=== PATIENT | female | born 1960 | race Caucasian/White ===

== ENCOUNTER 2021-07-22 14:50 | Emergency (ER) | payer OTHER, MEDICAID ==
[~2021-07-22] VITALS: Ht 147.3 cm; Wt 72.6 kg
[2021-07-22] MEDS ORDERED: ZETIA10 MG PO (15:16)
[2021-07-22] MEDS ORDERED: BUPROPION XL300 MG PO (15:17)
[2021-07-22] MEDS ORDERED: CELEXA 20 MG TA20 MG PO (15:17)
[2021-07-22] MEDS ORDERED: HYDROCHLOROTH12.5 M2 PO (15:17)
[2021-07-22] MEDS ORDERED: CRESTOR40 MG PO (15:18)
[2021-07-22] MEDS ORDERED: PREDNISONE 10 M10 MG PO (15:19)
[2021-07-22] MEDS ORDERED: SYNTHROID25 MC1 PO (15:19)
[2021-07-22] MEDS ORDERED: PROAIR HFA8.5 GM INH (15:19)
[2021-07-22] MEDS ORDERED: SYMBICORT160 MCG/4. INH (15:19)
[2021-07-22 16:12] LABS: URINE BILIRUBIN NEGATIVE (Negative); URINE BLOOD 3+ (Negative); URINE COLOR YELLOW; URINE GLUCOSE-RANDOM NEGATIVE (Negative); URINE KETONES NEGATIVE (Negative); URINE LEUKOCYTES-REFLEX TRACE (Negative); URINE NITRITE-REFLEX NEGATIVE (Negative); URINE PROTEIN NEGATIVE (Negative); URINE SPECIFIC GRAVITY >= 1.030 (1.005-1.030); URINE UROBILINOGEN 0.2 E.U./dl (0.2-1.0)
[2021-07-22 16:14] LABS: URINE CLARITY CLOUDY
[2021-07-22 16:20] LABS: BACTERIA-REFLEX 1-9 Few /HPF (None Seen); MUCUS None Seen strn/LPF (None Seen); SQUAMOUS >10 Many /LPF (0-3); URINE RBC >20 Many /HPF (0-2)
[2021-07-22 16:21] LABS: CASTS None Seen /LPF (None Seen); CRYSTALS None Seen /LPF (None Seen); URINE WBC-REFLEX 6-15 Few /HPF (0-5)
[2021-07-22 16:57] LABS: ABSOLUTE EOSINOPHILS 0.2 thou/uL (0.0-0.7); ABSOLUTE LYMPHOCYTES 1.2 thou/uL (0.8-5.3); ABSOLUTE MONOCYTES 0.7 thou/uL (0.0-1.2); ABSOLUTE NEUTROPHILS 7.9 thou/uL (1.6-8.1); BASOPHILS 0.1 %; EOSINOPHILS 1.6 %; HEMATOCRIT 44.3 % (37.0-47.0); HEMOGLOBIN 14.9 gm/dL (12.0-15.0); LYMPHOCYTES 12.4 %; MCH 30.4 pg (26.0-34.0); MCHC 33.6 g/dL (28.0-37.0); MCV 90.7 fL (80.0-100.0); MONOCYTES 7.4 %; MPV 9.4 fl. (7.2-11.1); NUCLEATED RBCS 0 /100WBC; PLATELET COUNT* 162 thou/uL (150-400); POLYS 78.5 %; RBC 4.89 mil/uL (4.20-5.00); RDW-CV 14.4 % (10.5-14.5)
[2021-07-22 16:59] LABS: CALCIUM 9.5 mg/dL (8.5-10.1); CREATININE 1.2 mg/dL (0.6-1.3); POTASSIUM 4.2 mmol/L (3.5-5.1)
[2021-07-22] MEDS ORDERED: ZOFRAN ODT4 MG PO (17:41)
[2021-07-22] MEDS ORDERED: NORCO5 PO (17:47)
[2021-07-22 18:11] VITALS: BP 165/88
--- NOTE | 2021-07-23 09:23 | EKG ---
[place] [address] ELECTROCARDIOGRAM REPORT Name: PATRICIAELODIA Nelson Room: [facility]#: [id number] Admission: 07/22/21 Attend Phys: Discharge: 07/22/21 Date of : 56 Date of Service: 07/22/211620 Report #: [id number] THIS REPORT FOR: //name// [facility] ED Test Date: 2021-07-22 Test Time: 16:21:36 Pat Name: ELODIA GOMEZ Department: Room: Gender: F Clinic Administrator: TJFatimah : 1960 Requested By: Vinay Barfield Order Number: [id number] MD: Ilya Nunn Measurements Intervals [place] Rate: 77 P: 14 ID: [id number] QRS: 23 QRSD: 92 T: 26 QT: 400 QTc: 453 Interpretive Statements Sinus rhythm No previous ECG available for comparison Electronically Signed On 07-23-2021 9:23:17 [employer] by Ilya Nunn [email or web address] <ELECTRONICALLY SIGNED> By: Ilya Nunn MD, [facility] 07/23/21922 20 162 Ilya Nunn MD, FACC /EPI
== END 2021-07-22 18:11 | disposition home or self-care (01) ==
LOC: M.ERS 14:50
PROVIDERS: Nurse Practitioner Psychiatric/Mental Health
DX: N20.1 Calculus of ureter (principal); J45.909 Unspecified asthma, uncomplicated; I10 Essential (primary) hypertension; Z98.51 Tubal ligation status; Z79.899 Other long term (current) drug therapy; Z88.8 Allergy status to other drugs, medicaments and biological substances